=== PATIENT | male | born 1960 | race Caucasian/White ===

== ENCOUNTER → 2017-03-30 | Outpatient (CLI) | payer MEDICARE, OTHER ==
[2015-01-04 14:58] VITALS: BP 120/74
[~2017-03-30] MED LIST: ARIP10TA9 PO; CELE200C PO; FERR-26 PO; FLUT1DIS IH; HYDR-2762 PO; LISI10TA2 PO; OXYC-323 PO; Oxycodone Hcl/Acetaminophen PO; TAMS0.4C2 PO; TRAZ50TA15 PO; WARF5TAB7 PO; Warfarin Sodium MC
--- NOTE | 2017-03-30 14:46 | RAD ---
EXAM: Triple phase bone scintigraphy. HISTORY: Right knee pain and swelling after arthroplasty. Recent fall. COMPARISON: 01/01/2015 plain radiograph. FINDINGS: 26.1 mCi technetium 99m MDP was administered intravenously. Scintigraphic images of both knees were obtained in angiographic, immediate and delayed phases. Angiographic images demonstrate increased perfusion to the right knee comparison with the left. Immediate images demonstrate a similar pattern. Delayed images demonstrate bilateral photopenic defects consistent with arthroplasties. There is asymmetrically increased uptake about the arthroplasty along the patella and the superomedial aspect of the femoral component. There is no clearly abnormal uptake about the left arthroplasty. Uptake at the right greater than left ankle and hind feet is likely degenerative. IMPRESSION: 1. Increased 3 phase uptake about the right arthroplasty, particularly at the patella and along the superomedial aspect of the femoral component. Correlate with plain radiographs to exclude fracture in the setting of recent trauma. Also correlate clinically and with radiographs to exclude loosening or infection.
== END | disposition home or self-care (01) ==
LOC: NM 07:57
PROVIDERS: ATTEND Orthopaedic Surgery
DX: M25.561 Pain in right knee (principal); W19.XXXD Unspecified fall, subsequent encounter
CPT/HCPCS: 78315; 96374; A9503

== ENCOUNTER → 2018-10-19 | Outpatient (CLI) | payer MEDICARE, OTHER ==
[2018-05-18 11:00] VITALS: BP 140/74
[~2018-10-19] MED LIST changes: +ALBU2.5V8 NEB; +AMLO5TAB4 PO; +ARIP30TA4 PO; +ASEN10TA9 SL; +ATOR10TA60 PO; +CARV3.1210 PO; +CETI10TA16 PO; +DICL75TA PO; -FERR-26 PO; +FERR325T14 PO; +FURO-68 PO; -HYDR-2762 PO; +HYDR-2765 PO; +LEVO500T59 PO; +LISI-338 PO; +METO25TA4 PO; +MOXI3DRO OS; +MULT1TAB52 PO; +NEPA3DRO LEFTEYE; +Nicotine 21MG TD; +OMEP20TA63 PO; -OXYC-323 PO; +OXYC1TAB15 PO; +OXYC1TAB19 PO; +PRED5DRO16 EACHEYE; +TOPI25TA7 PO; +TRAZ-118 PO; -TRAZ50TA15 PO; +WARF-31 PO; -WARF5TAB7 PO
--- NOTE | 2018-10-19 09:43 | CARD ---
MR#: [id number] Date of Study: 10/19/2018 Ordering Physician: GIANFRANCO OSHEA, Referring Physician: GIANFRANCO OSHEA, Tech: Noreen Figueroa APPROVED REPORT EXAM: Two-dimensional and M-mode echocardiogram with Doppler and color Doppler. Other Information Quality : AverageHR: 79bpm INDICATION COPD Cardiomyopathy Congestive Heart Failure RISK FACTORS Hypertension Hyperlipidemia Smoking 2D DIMENSIONS RVDd3.9 (2.9-3.5cm)Left Atrium(2D)4.3 (1.6-4.0cm) IVSd1.2 (0.7-1.1cm)Aortic Root(2D)3.7 (2.0-3.7cm) LVDd6.7 (3.9-5.9cm)LVOT Diameter2.4 (1.8-2.4cm) PWd1.5 (0.7-1.1cm)LVDs5.9 (2.5-4.0cm) FS (%) 12.3 %SV60.8 ml LVEF(%)25.9 (>50%) Aortic Valve AoV Peak Warren.145.7cm/Marifer Peak GR.8.5mmHg LVOT Peak Warren.74.8cm/sLVOT VTI 15.63cm JARRETT (VMAX)1.75wc4MU P 1/2 [id number] Mitral Valve MV E Igfyejqs47.6cm/sMV DECEL [id number] MV A Qhhvkwuc51.4cm/sMV [id number] E/A Ratio0.7MVA (PHT)3.33cm2 TDI E/Lateral E'14.6E/Medial E'13.8 Pulmonary Valve PV Peak Xucrlzrl10.1cm/sPV Peak Grad.3mmHg Pulmonary Vein S1 Aedgeujb18.2cm/sD2 Vkggfccg75.9cm/s PVa [id number] LEFT VENTRICLE The Left Ventricle is moderately dilated. There is moderate concentric left ventricular hypertrophy. The left ventricular systolic function is moderately impaired. The Ejection Fraction is 30-35%. There is global hypokinesis of the left ventricle. Transmitral Doppler flow pattern is Grade I-abnormal re laxation pattern. RIGHT VENTRICLE The right ventricle is normal size. There is normal right ventricular wall thickness. The right ventr icular systolic function is normal. ATRIA The left atrium is mildly dilated. The right atrium size is normal. The interatrial septum is intact with no evidence for an atrial septal defect or patent foramen ovale as noted on 2-D or Doppler imagi ng. AORTIC VALVE The aortic valve is normal in structure and function. Doppler and Color Flow revealed mild aortic reg urgitation. There is no significant aortic valvular stenosis. MITRAL VALVE The mitral valve is normal in structure and function. There is no evidence of mitral valve prolapse. There is no mitral valve stenosis. Doppler and Color-flow revealed trace mitral regurgitation. TRICUSPID VALVE The tricuspid valve is normal in structure and function. Doppler and Color Flow revealed trace tricus pid regurgitation. There is no tricuspid valve stenosis. PULMONIC VALVE The pulmonic valve is not well visualized. Doppler and Color Flow revealed trace pulmonic valvular re gurgitation. GREAT VESSELS The aortic root is mildly enlarged. The IVC is normal in size and collapses >50% with inspiration. PERICARDIAL EFFUSION There is no evidence of significant pericardial effusion. Critical Notification Critical Value: No <Conclusion> The left ventricular systolic function is moderately impaired. The Ejection Fraction is 30-35%. Transmitral Doppler flow pattern is Grade I-abnormal relaxation pattern. Mild aortic regurgitation. Trace mitral regurgitation. Trace tricuspid regurgitation. There is no evidence of significant pericardial effusion. Signed by : Lamont Pearl, Electronically Approved : 10/19/2018 09:43:10
== END | disposition home or self-care (01) ==
LOC: ECHO 07:58
PROVIDERS: ATTEND Internal Medicine Cardiovascular Disease
DX: I35.1 Nonrheumatic aortic (valve) insufficiency (principal); I11.0 Hypertensive heart disease with heart failure; I50.9 Heart failure, unspecified; I42.9 Cardiomyopathy, unspecified; E78.5 Hyperlipidemia, unspecified; J44.9 Chronic obstructive pulmonary disease, unspecified
CPT/HCPCS: 93306

== ENCOUNTER 2018-11-03 15:31 | Emergency (ER) | payer MEDICARE ==
[~2018-11-03] VITALS: Ht 180.3 cm; Wt 117.9 kg
--- NOTE | 2018-11-03 16:44 | RAD ---
Chest, PA and Lateral: Technique: PA and lateral views of the chest were obtained. History: PICC line. Comparison: 05/13/2018. Findings/ impression: Mild cardiomegaly.. Right-sided PICC line is identified with the tip projecting in the region of the SVC.. The lungs are clear. The pleural margins are clear. Electronically signed by: Rafa Ruiz MD (11/03/2018 4:41 PM) [facility]
--- NOTE | 2018-11-03 16:55 | PHYS DOC ---
Past Medical History Past Medical History: CHF, COPD, High Cholesterol, Hypertension, Schizophrenia (MARYAN CARLTON APRN) Past Surgical History: Knee Replacement, Other Additional Past Surgical Histo: right knee revision (MARYAN CARLTON APRN) Alcohol Use: Occasionally Drug Use: None (MARYAN CARLTON APRN) Adult General Chief Complaint Chief Complaint: OTHER COMPLAINTS [facility] HPI Patient is a 58 year old male who presents to the ED today requesting x-ray for confirmation of the PICC line being in the right place. Patient states he was admitted at [facility] a week ago for right knee infection had knee revision, was started on Vancomycin. Home health nurse came today noted some swelling on the right upper extremity at the PICC line site and sent him to the ED to have an x-ray done to confirm PICC location. He is requesting we fax the x-ray to [facility]. He states his PICC line could have moved when he was asleep I asked patient and the if there is any concern for infection considering this some swelling and trace redness to the PICC line. Patient and state they were sent here for x-rays only. They states they are not here for labs. (MARYAN CARLTON APRN) Review of Systems Review of Systems Constitutional: Denies fever or chills [] Eyes: Denies change in visual acuity, redness, or eye pain [] HENT: Denies nasal congestion or sore throat [] Respiratory: Denies cough or shortness of breath [] Cardiovascular: No additional information not addressed in HPI [] GI: Denies abdominal pain, nausea, vomiting, bloody stools or diarrhea [] : Denies dysuria or hematuria [] Musculoskeletal: Denies back pain or joint pain [] Integument: Request chest x-ray for PICC confirmation Neurologic: Denies headache, focal weakness or sensory changes [] All other systems were reviewed and found to be within normal limits, except as documented in this note. (MARYAN CARLTON APRN) Allergies Allergies Allergies Coded Allergies Type Severity Reaction Last Updated Verified Penicillins Allergy Intermediate Rash 04/27/17 Yes aspirin Adverse Reaction Intermediate Rash 04/27/17 Yes (GIOVANNI NOLAN DO) Physical Exam Physical Exam Constitutional: Well developed, well nourished, no acute distress, non-toxic appearance. [] HENT: Normocephalic, atraumatic, bilateral external ears normal, oropharynx moist, no oral exudates, nose normal. [] Eyes: PERRLA, EOMI, conjunctiva normal, no discharge. [] Neck: Normal range of motion, no tenderness, supple, no stridor. [] Cardiovascular:Heart rate regular rhythm, no murmur [] Lungs & Thorax: Bilateral breath sounds clear to auscultation [] Abdomen: Bowel sounds normal, soft, no tenderness, no masses, no pulsatile masses. [] Skin: Right inner biceps with a PICC line with a clean dry dressing. There is slight swelling over the PICC line site with slight erythema around this area though patient states this has been there prior to today. There is no warmth, there is no drainage over the picc line site. Dressing is clean and intact. Back: No tenderness, no CVA tenderness. [] Extremities: No tenderness, no cyanosis, no clubbing, ROM intact, no edema. [] Neurologic: Alert and oriented X 3, normal motor function, normal sensory function, no focal deficits noted. [] Psychologic: Affect normal, judgement normal, mood normal. [] (MARYAN CARLTON APRN) Current Patient Data Vital Signs Vital Signs Date Time Temp Pulse Resp B/P (MAP) Pulse Ox O2 Delivery O2 Flow Rate FiO2 11/03/18 17:04 84 20 158/84 (108) 96 Room Air 11/03/18 15:40 98.4 98.4 (GIOVANNI NOLAN DO) EKG EKG [] (MARYAN CARLTON APRN) Radiology/Procedures Radiology/Procedures []PROCEDURE: CHEST PA & LATERAL Chest, PA and Lateral: Technique: PA and lateral views of the chest were obtained. History: PICC line. Comparison: 05/13/2018. Findings/ impression: Mild cardiomegaly.. Right-sided PICC line is identified with the tip projecting in the region of the SVC.. The lungs are clear. The pleural margins are clear. Electronically signed by: Rafa Solorio MD (11/03/2018 4:41 PM) [facility] DICTATED and SIGNED BY: RAFA SOLORIO MD DATE: 11/03/18 1641 (MARYAN CARLTON APRN) Course & Med Decision Making Course & Med Decision Making Pertinent Labs and Imaging studies reviewed. (See chart for details) This is a 58-year-old male patient who presents to the ED today requesting an x- ray to confirm his PICC line is in the right place. Patient has had the PICC line for one week, his currently being treated with vancomycin for right knee infection he states the home health nurse evaluated this area today and is concerned that the PICC line could've moved. Patient states he believed could've moved in his sleep. Chest xray noted for- Right-sided PICC line is identified with the tip projecting in the region of the SVC.. The lungs are clear. The pleural margins are clear. Xray clouded to [facility]. D/c to home. F/u with PCP in 1 week (MARYAN CARLTON APRN) Dragon Disclaimer Dragon Disclaimer This electronic medical record was generated, in whole or in part, using a voice recognition dictation system. (MARYAN CARLTON APRN) Departure Departure Impression: Primary Impression: PICC (peripherally inserted central catheter) in place Disposition: HOME, SELF-CARE Condition: STABLE Referrals: ROSAMARIA CALLE MD (PCP) followup in 1 week Patient Instructions: PICC Home Guide Additional Instructions: Your PICC line tip appears in the right place. We clouded the images to [facility]. Your doctor should have access to it. Follow up with your doctor as soon as you can Attending Signature Attending Signature I have reviewed the PA/TEMPERATURE CONTROL INSPECTOR's note and plan of care. I was available for consultation as needed during the patient's visit in the emergency department. I agree with the clinical impression, plan, and disposition. (GIOVANNI NOLAN DO) MARYAN CARLTON APRN Nov 03, 2018 16:55 GIOVANNI NOLAN DO Nov 07, 2018 14:50
[2018-11-03 17:04] VITALS: BP 158/84
== END 2018-11-03 17:03 | disposition home or self-care (01) ==
LOC: ER 15:31
DX: Z95.9 Presence of cardiac and vascular implant and graft, unspecified (principal); E78.00 Pure hypercholesterolemia, unspecified; J44.9 Chronic obstructive pulmonary disease, unspecified; F20.9 Schizophrenia, unspecified; I11.0 Hypertensive heart disease with heart failure; I50.9 Heart failure, unspecified; Z88.0 Allergy status to penicillin; Z88.6 Allergy status to analgesic agent
CPT/HCPCS: 71046; 99284

== ENCOUNTER → 2019-07-07 | Outpatient (CLI) | payer BC ==
[2019-07-07 11:36] LABS: BASO # 0.1 x10^3/uL (0.0-0.2); BASO % 1 % (0-3); EOS # 0.4 x10^3/uL (0.0-0.7); EOS % 4 % (0-3); HEMATOCRIT 43.5 % (39.0-53.0); HEMOGLOBIN 14.4 g/dL (13.0-17.5); LYMPH # 3.2 x10^3/uL (1.0-4.8); LYMPH % 30 % (24-48); MEAN CORPUSCULAR HEMOGLOBIN 27 pg (25-35); MEAN CORPUSCULAR HGB CONC 33 g/dL (31-37); MEAN CORPUSCULAR VOLUME 83 fL (79-100); MONO # 1.1 x10^3/uL (0.0-1.1); MONO % 11 % (0-9); NEUT # 5.9 x10^3/uL (1.8-7.7); NEUT % 55 % (31-73); PLATELET COUNT 284 x10^3/uL (140-400); RED BLOOD COUNT 5.26 x10^6/uL (4.30-5.70); RED CELL DISTRIBUTION WIDTH 15.4 % (11.5-14.5); WHITE BLOOD COUNT 10.7 x10^3/uL (4.0-11.0)
[2019-07-07 11:51] LABS: ALBUMIN 3.8 g/dL (3.4-5.0); CALCIUM 9.8 mg/dL (8.5-10.1); CREATININE 1.5 mg/dL (0.7-1.3); GFR 48.1; POTASSIUM 5.2 mmol/L (3.5-5.1); TOTAL BILIRUBIN 0.4 mg/dL (0.2-1.0); TOTAL PROTEIN 7.8 g/dL (6.4-8.2)
== END ==
LOC: LAB 10:47
PROVIDERS: ATTEND Internal Medicine Cardiovascular Disease
DX: I42.9 Cardiomyopathy, unspecified (principal)
CPT/HCPCS: 36415; 80053; 83880; 85025

== ENCOUNTER → 2020-06-24 | Outpatient (CLI) | payer MEDICARE ==
[~2020-06-24] MED LIST changes: +ALBU2.5V8 IH; +CETI10CA PO; +DOXE50CA PO; +FLUO20CA20 PO; +FLUT1BLS3 IH; -LISI-338 PO; +LISI-517 PO; +LISI10TA16 PO; -LISI10TA2 PO; +MIRA25TA PO; +MULT-445 PO; -MULT1TAB52 PO; +SACU1TAB PO; +TAMS0.4C97 PO
== END ==
LOC: LAB 12:56
PROVIDERS: ATTEND Internal Medicine Cardiovascular Disease
DX: Z01.812 Encounter for preprocedural laboratory examination (principal); Z20.822 Contact with and (suspected) exposure to COVID-19
CPT/HCPCS: U0003

== ENCOUNTER 2020-06-27 08:18 | Observation (INO) | payer MEDICARE, MEDICAID ==
[~2020-06-27] VITALS: Ht 180.3 cm; Wt 128.3 kg
[2020-06-27] VITALS (15 sets, daily range): BP systolic 103–195; BP diastolic 63–100
[~2020-06-27 08:18] MED LIST changes: -ALBU2.5V8 IH; -CETI10CA PO; -DOXE50CA PO; -FLUO20CA20 PO; -FLUT1BLS3 IH; -MIRA25TA PO; -SACU1TAB PO; -TAMS0.4C97 PO
[2020-06-27] MEDS ORDERED: SACU1TAB PO (08:49)
[2020-06-27] MEDS ORDERED: TAMS0.4C97 PO (08:49)
[2020-06-27] MEDS ORDERED: FLUO20CA20 PO (08:49)
[2020-06-27] MEDS ORDERED: MIRA25TA PO (08:49)
[2020-06-27] MEDS ORDERED: CETI10CA PO (08:49)
[2020-06-27] MEDS ORDERED: ALBU2.5V8 IH (08:49)
[2020-06-27] MEDS ORDERED: CARV3.1210 PO (08:49)
[2020-06-27] MEDS ORDERED: DOXE50CA PO (08:49)
[2020-06-27 09:01] LABS: HEMATOCRIT 49.3 % (39.0-53.0); HEMOGLOBIN 16.6 g/dL (13.0-17.5); RED BLOOD COUNT 5.91 x10^6/uL (4.30-5.70); RED CELL DISTRIBUTION WIDTH 15.6 % (11.5-14.5); WHITE BLOOD COUNT 7.7 x10^3/uL (4.0-11.0)
[2020-06-27 09:11] LABS: PROTHROMBIN TIME PATIENT 13.1 SEC (11.7-14.0)
--- NOTE | 2020-06-27 09:12 | NUR ---
Order received from Dr. Navarrete to admit patient; CVC status. Dx acute decompensated heart failure. IV placed, VS taken. Admission order placed. Labs, echo ordered per . Notified Noreen SAAB, Pattern Assembler, at 0910 of admission order.
[2020-06-27 09:16] LABS: ALBUMIN 3.6 g/dL (3.4-5.0); ALBUMIN/GLOBULIN RATIO 0.9 (1.0-1.7); CALCIUM 9.1 mg/dL (8.5-10.1); CREATININE 1.2 mg/dL (0.7-1.3); POTASSIUM 4.1 mmol/L (3.5-5.1); TOTAL BILIRUBIN 0.6 mg/dL (0.2-1.0); TOTAL PROTEIN 7.5 g/dL (6.4-8.2)
--- NOTE | 2020-06-27 12:10 | NUR ---
REPORT CALLED TO KATIANA FAGAN ON CVC, BY Lily HENDRIX RN . ALL QUESTIONS ANSWERED AND UPDATES GIVEN. PT SIGNED CONSENTS FOR CARDIAC CATH, HIV AND MODERATE SEDATION. PT TRANSPORTED VIA WHEELCHAIR TO ROOM 263.
[2020-06-27] MEDS ORDERED: LIDOCAINE 1% Multi-Dose 20 ML VIAL. ONE (13:57)
[2020-06-27] MEDS ORDERED: fentaNYL PF VIAL 100 MCG/2 ML VIAL ONE (14:11)
[2020-06-27] MEDS ORDERED: MIDAZOLAM HCL/PF 2 MG/2 ML VIAL. ONE (14:11)
[2020-06-27] MEDS ORDERED: MIDAZOLAM HCL/PF 2 MG/2 ML VIAL. IV ONE (14:15)
[2020-06-27] MEDS ORDERED: fentaNYL PF VIAL 100 MCG/2 ML VIAL IV ONE (14:15)
[2020-06-27] MEDS ORDERED: LIDOCAINE 1% Multi-Dose 20 ML VIAL. INJ ONE (14:15)
--- NOTE | 2020-06-27 14:20 | PDOC ---
MODERATE SEDATION ASSESSMENT RISKS/ALTERNATIVES Risks/Alternatives Risks and alternatives of this type of sedation and procedure discussed with: RISK/ALTERNATIVES: Patient H & P ON CHART H & P H & P on chart and reviewed for co-morbid conditions and appropriate labs. H&P ON CHART: Yes STATUS PREG STATUS ASSESSED: N/A MEDS/ALLERGIES REVIEWED Meds/Allergies Reviewed Medications and Allergies including time and route of recently administered narcotics and sedatives. MEDS/ALLERGIES REVIEWED: Yes ASA RATING ASA RATING: II AIRWAY ASSESSMENT Airway Assessment Airway patency, oral function limitations, presence of caps, crowns, dentures, partials, and ability to extend neck assessed. AIRWAY ASSESSMENT: Yes MALLAMPATI SCORE MALLAMPATI SCORE: II PRE-SEDATION ASSESSMENT PRE-SEDATION ASSESSMENT: Yes GIANFRANCO OSHEA MD Jun 27, 2020 14:20
--- NOTE | 2020-06-27 14:20 | PDOC1 ---
History and Physical Visit Information Date of Admission: Jun 27, 2020 at 09:05 History of Present Illness History of Present Illness Roscoe is a pleasant 59-year-old man who comes into the hospital today for evaluation of worsening exertional dyspnea. He was seen in the office approximately 2 weeks ago and had significant exertional dyspnea, NYHA class III symptoms and exertional chest pressure. He was on appropriate medical therapy including carvedilol, Entresto and was taking diuretics with Lasix. Despite outpatient treatment with medications he continued to have worsening symptoms. He was planned for an outpatient cardiac catheterization today but reported that he had severe exertional dyspnea and was unable to perform activities of daily living and this prompted admission to the hospital. A thorough discussion was held with the patient and his sister prior to admission. He unfortunately is unable to walk without significant limitations. He initially saw us 2 weeks ago for preoperative clearance for a planned knee surgery and this was delayed due to his significant comorbidities. He underwent an echocardiogram today with results as noted below. Cardiac Risk Factors Comments 1. Morbid obesity 2. Obstructive sleep apnea not yet on CPAP therapy 3. Tobacco abuse 4. Presumed COPD 5. Prior history of nonischemic cardiomyopathy with an ejection fraction of 25% Current Medications Current Medications Current Medications Heparin Sodium/ Sodium Chloride 500 ml @ As Directed STK-MED ONCE .ROUTE ; Start 06/27/20 at 13:57; Stop 06/27/20 at 13:57; Status DC Lidocaine HCl (Lidocaine 1% 20ml Vial) 20 ml STK-MED ONCE .ROUTE ; Start 06/27/20 at 13:57; Stop 06/27/20 at 13:57; Status DC Allergies Allergies Allergies Coded Allergies Type Severity Reaction Last Updated Verified Penicillins Allergy Intermediate Rash 04/27/17 Yes aspirin Adverse Reaction Intermediate Rash 04/27/17 Yes Social History Comments He continues to smoke approximately 1 pack/day. Denies any alcohol or illicit drug use. He has 2 sisters who help care for him very closely. Family History Comments Noncontributory ROS Review of System Negative for 10 out of 14 systems reviewed unless otherwise mentioned above in HPI Physical Exam Comments On examination he has moderate distress from his tachypnea. He is alert and oriented x3 Head and neck exam is unremarkable. He has a thick neck consistent with his sleep apnea symptoms Extraocular movements are intact Cardiac exam reveals normal S1 and S2 with an S3 present Lungs are notable for decreased breath sounds bilaterally with mild bibasilar rales He has an obese protuberant abdomen. No obvious organomegaly is present 2+ radial pulses He has chronic skin changes suggestive of venous insufficiency with diminished pedal pulses. No obvious acute limb ischemia is noted No focal neurologic deficits but he does have weakness with his right leg due to his arthritis Vitals VITALS Vital Signs Date Time Temp Pulse Resp B/P (MAP) Pulse Ox O2 Delivery O2 Flow Rate FiO2 06/27/20 11:30 90 14 119/84 (96) 95 Nasal Cannula 2.0 06/27/20 09:15 98.1 98.1 Labs Labs Laboratory Tests Test 06/27/20 08:40 White Blood Count 7.7 x10^3/uL (4.0-11.0) Red Blood Count 5.91 x10^6/uL (4.30-5.70) Hemoglobin 16.6 g/dL (13.0-17.5) Hematocrit 49.3 % (39.0-53.0) Mean Corpuscular Volume 83 fL (79-100) Mean Corpuscular Hemoglobin 28 pg (25-35) Mean Corpuscular Hemoglobin Concent 34 g/dL (31-37) Red Cell Distribution Width 15.6 % (11.5-14.5) Platelet Count 200 x10^3/uL (140-400) Prothrombin Time 13.1 SEC (11.7-14.0) Prothromb Time International Ratio 1.0 (0.8-1.1) Sodium Level 138 mmol/L (136-145) Potassium Level 4.1 mmol/L (3.5-5.1) Chloride Level 104 mmol/L (98-107) Carbon Dioxide Level 22 mmol/L (21-32) Anion Gap 12 (6-14) Blood Urea Nitrogen 25 mg/dL (8-26) Creatinine 1.2 mg/dL (0.7-1.3) Estimated GFR (Cockcroft-Gault) 62.0 BUN/Creatinine Ratio 21 (6-20) Glucose Level 131 mg/dL (70-99) Calcium Level 9.1 mg/dL (8.5-10.1) Total Bilirubin 0.6 mg/dL (0.2-1.0) Aspartate Amino Transf (AST/SGOT) 24 U/L (15-37) Alanine Aminotransferase (ALT/SGPT) 49 U/L (16-63) Alkaline Phosphatase 115 U/L (46-116) ZT-Wyx-X-Type Natriuretic Peptide 170 pg/mL (0-124) Total Protein 7.5 g/dL (6.4-8.2) Albumin 3.6 g/dL (3.4-5.0) Albumin/Globulin Ratio 0.9 (1.0-1.7) Laboratory Tests Test 06/27/20 08:40 White Blood Count 7.7 x10^3/uL (4.0-11.0) Red Blood Count 5.91 x10^6/uL (4.30-5.70) Hemoglobin 16.6 g/dL (13.0-17.5) Hematocrit 49.3 % (39.0-53.0) Mean Corpuscular Volume 83 fL (79-100) Mean Corpuscular Hemoglobin 28 pg (25-35) Mean Corpuscular Hemoglobin Concent 34 g/dL (31-37) Red Cell Distribution Width 15.6 % (11.5-14.5) Platelet Count 200 x10^3/uL (140-400) Prothrombin Time 13.1 SEC (11.7-14.0) Prothromb Time International Ratio 1.0 (0.8-1.1) Sodium Level 138 mmol/L (136-145) Potassium Level 4.1 mmol/L (3.5-5.1) Chloride Level 104 mmol/L (98-107) Carbon Dioxide Level 22 mmol/L (21-32) Anion Gap 12 (6-14) Blood Urea Nitrogen 25 mg/dL (8-26) Creatinine 1.2 mg/dL (0.7-1.3) Estimated GFR (Cockcroft-Gault) 62.0 BUN/Creatinine Ratio 21 (6-20) Glucose Level 131 mg/dL (70-99) Calcium Level 9.1 mg/dL (8.5-10.1) Total Bilirubin 0.6 mg/dL (0.2-1.0) Aspartate Amino Transf (AST/SGOT) 24 U/L (15-37) Alanine Aminotransferase (ALT/SGPT) 49 U/L (16-63) Alkaline Phosphatase 115 U/L (46-116) NV-Pnb-G-Type Natriuretic Peptide 170 pg/mL (0-124) Total Protein 7.5 g/dL (6.4-8.2) Albumin 3.6 g/dL (3.4-5.0) Albumin/Globulin Ratio 0.9 (1.0-1.7) ECG Comments Sinus rhythm VTE Prophylaxis Ordered VTE Prophylaxis Devices: No VTE Pharmacological Prophylaxi: No Assessment/Plan Assessment/Plan 1. Acute on chronic hypoxic respiratory failure, patient initially was hypoxic to the 80s on admission and required initiation of nasal cannula at 2 to 3 L 2. Mild acute on chronic systolic and diastolic heart failure 3. Morbid obesity with likely underlying COPD and obstructive sleep apnea Plan: 1. His laboratory studies are grossly unremarkable but he does have new oxygen requirements and I think would be imperative to rule out any worsening obstructive pulmonary issues. We will initiate oxygen therapy and have our pulmonary colleagues evaluate him. He does have moderate pulmonary hypertension on echocardiogram and we will proceed with a right heart catheterization to evaluate his filling pressures. Continue optimization. Justicifation of Admission Dx: Justifications for Admission: Justification of Admission Dx: Yes Respiratory Failure: Severe Resp Distress Acute COPD Exacerbation: Acute COPD Exacerbation GIANFRANOC OSHEA MD Jun 27, 2020 14:20
--- NOTE | 2020-06-27 17:45 | CARD ---
MR#: [id number] Date of Study: 06/27/2020 Ordering Physician: GIANFRANCO OSHEA, Referring Physician: GIANFRANCO OSHEA, Tech: Margie Arevalo APPROVED REPORT Technologist: Margie Arevalo Nurse: Valentine Silva RN Procedure(s) performed: fl time: 0.9 mins dose: 3 gycm2 moderate sedation: 25 mins RHC HISTORY The patient is a 59 year-old male with a history of : tobacco history() , hypertension, dyslipidemia. INDICATION The indication(s) include : dyspnea. PROCEDURE NARRATIVE Clinical information: 59-year-old male with history of cardiomyopathy, severe COPD, obstructive sleep apnea who presented t o the [facility] with worsening exertional dyspnea and NYHA class III symptoms. A right heart catheter ization was performed to elicit the etiology of his exertional dyspnea. After appropriate informed consent the patient was brought to the catheterization laboratory and the right neck was prepped and draped in usual sterile fashion. Under 2% lidocaine local anesthesia a 8 B[place]wanan sheath was inserted into the right internal jugular vein via ultrasound and fluoroscopic analilia nce. A 7.5 [place]an PA catheter was advanced to the right heart chambers and pressures and saturations were obtained. Next, cardiac output measurements were made by the Apolinar and thermal dilution methods . At case completion the PA catheter was removed and hemostasis was achieved with manual compression . No acute complications were noted. Findings: RA 8 mmHg RV 34/5/10 PA 34/19/24 Wedge 11 mmHg Wedge saturation 93%, PA saturation 71% Thermodilution cardiac output 6.8 L/min, Apolinar cardiac output 5.4 L/min Conclusion 1. Normal biventricular filling pressures 2. No evidence of pulmonary hypertension 3. Normal cardiac output Recommendations 1. Aggressive medical therapy for COPD and pulmonary disease. Patient had new oxygen requirements a t initial hospitalization and we will await pulmonary consultation for further optimization. 2. Patient previously seen at [facility], we will obtain outside hospital missy rds for review. Signed by : Gianfranco Oshea, Electronically Approved : 06/27/2020 17:44:56
--- NOTE | 2020-06-27 22:19 | NUR ---
Home C-Pap at bedside. Patient explains he does not want to wear it because "he doesn't really like it and it gets in the way". Applied O2 2L NC. Resting in bed with call light at hand.
--- NOTE | 2020-06-28 02:08 | NUR ---
Patient agreeable to try sleeping with new c-pap machine on.
[2020-06-28 03:35] VITALS: BP 158/80
[2020-06-28 07:00] VITALS: BP 126/96
[2020-06-28] MEDS ORDERED: ALBUTEROL SULFATE 2.5 MG/3 ML NEBU. NEB PRN (08:45)
[2020-06-28] MEDS ORDERED: CARVEDILOL 3.125 MG TABLET. PO SCH (09:00)
[2020-06-28] MEDS ORDERED: FLUoxetine HCL 20 MG CAPSULE PO SCH (09:00)
[2020-06-28] MEDS ORDERED: FUROSEMIDE 40 MG TABLET. PO SCH (09:00)
[2020-06-28] MEDS ORDERED: MULTIVITAMIN with MINERAL TABLET. PO SCH (09:00)
[2020-06-28] MEDS ORDERED: SACUBITRIL/VALSARTAN 24/26MG TABLET. PO SCH (09:00)
--- NOTE | 2020-06-28 10:28 | CONS ---
DATE OF CONSULTATION: PULMONARY CONSULTATION ATTENDING PHYSICIAN: Canelo Navarrete MD REASON FOR CONSULTATION: Dyspnea. HISTORY OF PRESENT ILLNESS: The patient is a 59-year-old morbidly obese male who weighs 128 kilos. The patient has been hospitalized for exertional dyspnea. He was seen by Cardiology. Apparently dyspnea has been going on for last 6 months. He has put on 50 pounds during this time. He has no chest pain. No lower extremity edema. The patient smoked for 30 years, close to 2 packs per day and down to 1 pack per day and has not quit. Previously his echocardiogram had shown an EF of 30-35%, but a recent echocardiogram shows normal ejection fraction, but some moderate hypokinesis and grade 1 diastolic dysfunction. The patient has severe sleep apnea, diagnosed recently and has been on CPAP, which he just got the machine yesterday. He also saw cost control analyst in [place]. According to him, he did a lung scan. He is not sure of the results and pulmonary function tests were done and again he does not know the results. He has no history of deep vein thrombosis or pulmonary embolism. He underwent cardiac catheterization done by Cardiology and I have reviewed the results. He has normal biventricular filling pressures. No evidence of pulmonary hypertension. Aggressive medical management was recommended. No significant coronary artery disease. PAST MEDICAL HISTORY: Significant for history of morbid obesity, history of severe obstructive sleep apnea, history of likely COPD, history of previous low ejection fraction now normal, history of grade 1 diastolic dysfunction, history of thyroid nodule reported to him by outside imaging studies. PAST SURGICAL HISTORY: No recent surgeries. ALLERGIES: PENICILLIN AND ASPIRIN. MEDICATIONS: Reviewed as listed in the MRAD. REVIEW OF SYSTEMS: Twelve-point system obtained. Pertinent positives discussed in my history of present illness, otherwise noncontributory. All systems that were negative were reviewed as well. FAMILY HISTORY: Noncontributory to lungs. SOCIAL HISTORY: Smoker for more than 30 years up to 2 packs per day, now down to 1 pack a day. PHYSICAL EXAMINATION: VITAL SIGNS: Reviewed, pulse ox 89% on room air and 92% on 3 liters. NECK: Supple. LUNGS: Clear. CARDIOVASCULAR: Regular rate. ABDOMEN: Soft, obese. EXTREMITIES: With no pitting edema. LABORATORY DATA: Reviewed. White cell count 7.7, hemoglobin 16.6 and platelets are 200. BUN and creatinine 25 and 1.2. IMPRESSION: 1. Chronic exertional dyspnea for last 6 months. This is multifactorial and related to combination of 50-pound weight gain during this time as well as underlying chronic obstructive pulmonary disease. He has history of cardiomyopathy previously with an EF of 30-35%, but his recent echo shows normal ejection fraction, he does have moderate hypokinesis and grade 1 diastolic dysfunction. No clinical suspicion for thromboembolic disease. He needs optimization of his pulmonary status and also noncontrast CT chest to rule out any interstitial lung disease versus interstitial residual edema. 2. Severe obstructive sleep apnea based on the patient's history. His AHI was 99 per hour at an outside facility sleep study. He has been just prescribed CPAP yesterday. 3. Morbid obesity with a 50-pound weight gain in last 6 months. 4. No prior history of DVT or pulmonary embolism. RECOMMENDATIONS: 1. I have discussed with the patient and his sister in detail. He needs optimization of his pulmonary status. I will add Trelegy Ellipta 1 puff daily. He will use p.r.n. albuterol as rescue inhaler. 2. He needs to significantly lose weight. 3. 6-minute walk test to assess the need for home oxygen. 4. Continue home CPAP. 5. PFTs as an outpatient. 6. Noncontrast CT chest to rule out any residual interstitial infiltrate or interstitial lung disease. The chest x-ray shows slightly prominent interstitial markings from today's film. 7. The patient to follow up with me in August. We will discuss with Dr. Navarrete. SANA MONZON MD DR: LESLI/estrada JOB#: [id number] / [id number]
--- NOTE | 2020-06-28 10:31 | CARD ---
MR#: [id number] Date of Study: 06/27/2020 Ordering Physician: GIANFRANCO OSHEA, Referring Physician: GIANFRANCO OSHEA, Tech: Jennifer Jean [facility] APPROVED REPORT EXAM: Two-dimensional and M-mode echocardiogram with Doppler and color Doppler. Other Information Quality : Fair INDICATION Dyspnea 2D DIMENSIONS RVDd3.6 (2.9-3.5cm)Left Atrium(2D)5.3 (1.6-4.0cm) IVSd1.4 (0.7-1.1cm)Aortic Root(2D)4.1 (2.0-3.7cm) LVDd6.0 (3.9-5.9cm)LVOT Diameter2.7 (1.8-2.4cm) PWd1.3 (0.7-1.1cm)LVDs5.2 (2.5-4.0cm) FS (%) 13.2 %SV50.3 ml Aortic Valve AoV Peak Warren.150.2cm/sAoV VTI24.6cm AO Peak GR.9.0mmHgLVOT VTI 13.77cm AO Mean GR.6mmHgAVA (VTI)3.10cm2 Mitral Valve MV E Dtgaqwdg74.4cm/sMV DECEL [id number] MV A Iutjuvur31.1cm/sE/A Ratio0.9 TDI Lateral E' P. V3.60cm/sMedial E' P. V2.51cm/s E/Lateral E'19.0E/Medial E'27.3 Tricuspid Valve TR P. Sddpscme650no/sRAP [id number] TR Peak Gr.87heFcVBZB50eqNx LEFT VENTRICLE The left ventricle is normal size. There is mild concentric left ventricular hypertrophy. The left ve ntricular systolic function is normal and the ejection fraction is within normal range. The Ejection Fraction is 50-55%. There is normal LV segmental wall motion. Transmitral Doppler flow pattern is Gra de I-abnormal relaxation pattern. RIGHT VENTRICLE The right ventricle is normal size. The right ventricular systolic function is normal. ATRIA The left atrium is mildly dilated. The right atrium size is normal. The interatrial septum is intact with no evidence for an atrial septal defect or patent foramen ovale as noted on 2-D or Doppler imagi ng. AORTIC VALVE The aortic valve is calcified but opens well. Doppler and Color Flow revealed no significant aortic r egurgitation. There is no significant aortic valvular stenosis. MITRAL VALVE The mitral valve is calcified but opens well. There is no evidence of mitral valve prolapse. There is no mitral valve stenosis. Doppler and Color-flow revealed trace mitral regurgitation. TRICUSPID VALVE The tricuspid valve is normal in structure and function. Doppler and Color Flow revealed trace tricus pid regurgitation. The PA pressure was estimated at 27 mmHg. There is no tricuspid valve stenosis. PULMONIC VALVE The pulmonic valve is not well visualized. Doppler and Color Flow revealed trace pulmonic valvular re gurgitation. There is no pulmonic valvular stenosis. GREAT VESSELS The aortic root is normal in size. The ascending aorta is moderately dilated at 4.0 cm. The IVC is no rmal in size and collapses >50% with inspiration. PERICARDIAL EFFUSION There is no evidence of significant pericardial effusion. Critical Notification Critical Value: No <Conclusion> The left ventricle is normal size. The left ventricular systolic function is normal and the ejection fraction is within normal range. The Ejection Fraction is 50-55%. There is mild concentric left ventricular hypertrophy. Doppler and Color Flow revealed no significant aortic regurgitation. There is no significant aortic valvular stenosis. Doppler and Color-flow revealed trace mitral regurgitation. Doppler and Color Flow revealed trace tricuspid regurgitation. The PA pressure was estimated at 27 mmHg. The ascending aorta is moderately dilated at 4.0 cm. Signed by : Epifanio Hackett MD Electronically Approved : 06/28/2020 10:30:34
--- NOTE | 2020-06-28 10:40 | RAD ---
EXAM: XR CHEST 1V INDICATION: Reason: hypoxia / Spl. Instructions: / History: . TECHNIQUE: Single view COMPARISON: 11/03/2018 chest x-ray FINDINGS: The heart size is borderline enlarged. The great vessels appear unremarkable. There is no hilar or mediastinal mass. The lungs are clear. There is no pleural effusion or pneumothorax. There are no significant osseous abnormalities. IMPRESSION: Borderline cardiomegaly. No acute superimposed cardiac pulmonary process. Electronically signed by: Galdino Mart MD (06/28/2020 10:38 AM) [id number]
[2020-06-28 11:00] VITALS: BP 172/64
--- NOTE | 2020-06-28 11:20 | PDOC ---
CARDIO Progress Notes Date and Time Date of Service 06/28/20 Time of Evaluation 1420 Subjective Subjective: No Chest Pain, No Palpitations, No Dizziness, Other (not more SOA) Vitals Vitals Vital Signs Date Time Temp Pulse Resp B/P (MAP) Pulse Ox O2 Delivery O2 Flow Rate FiO2 06/28/20 10:59 81 126/96 06/28/20 08:00 Room Air 3.0 06/28/20 07:00 98.4 18 89 98.4 Weight Weight [ ] Input and Output Intake and Output Intake and Output 06/28/20 07:00 Intake Total 800 ml Output Total 750 ml Balance 50 ml Intake Oral 800 ml Output Urine Total 750 ml Physical Exam HEENT: Neck Supple W Full Motion Chest: Symmetric LUNGS: Other (diminished bases) Heart: RRR Abdomen: Other (obese ) Extremities: Other (trace bilateral LE edema ) Neurology: alert, oriented, follow commands Assessment Assessment 1. Progressive dyspnea secondary to COPD and morbid obesity. RHC with normal filling pressures and cardiac output. No evidence of pulm HTN. 2. NAVEED; CPAP initiated 3. Tobacco abuse 4. H/o NICM with LV recovery. EF previously 25%, now 50-55% Recommendations Trelegy initiated CPAP at HS 6min walk Weight loss; behavioral health tech consult Follow up in our clinic with Dr. Navarrete as scheduled. Justicifation of Admission Dx: Justifications for Admission: Justification of Admission Dx: Yes Respiratory Failure: Severe Resp Distress Acute COPD Exacerbation: Acute COPD Exacerbation STEPHANIE LARRY APRN Jun 28, 2020 11:20
--- NOTE | 2020-06-28 11:29 | NUR ---
SS following for discharge planning. SS reviewed pt chart and discussed with pt RN. Pt is from home and is currently requesting oxygen via nasal canula. Pt had heart cath on 06/27/2020. Pulmonary consulted. Six minute walk ordered. SS will continue to follow for discharge planning.
[2020-06-28] MEDS ORDERED: IPRATRPIUM/ALBUTEROL 0.5/2.5MG 3 ML NEBU. NEB SCH (12:00)
--- NOTE | 2020-06-28 12:39 | RAD ---
Noncontrast CT scan of the chest compared to similar exam dated May 122018 for hypoxia. TECHNIQUE: Contiguous axial CT images are obtained through the chest without IV contrast. Sagittal an d coronal reformations are evaluated. FINDINGS: There are a few small subtle areas of peripheral pleural-based groundglass opacities involv ing the lingula in the dependent lung bases, with appearance most characteristic of subsegmental atel ectasis. No areas of focal consolidation are identified. There may be some very subtle peribronchial thickening involving the perihilar bronchi, which could reflect early bronchitis or reactive airway d isease. No pleural effusions. No pneumothorax. There are conspicuous but morphologically normal lymph nodes throughout the mediastinum, which appear less prominent on the prior CT scan. Benign 2 suspect ed. No suspicious mediastinal, hilar, or axillary lymphadenopathy is seen. Coronary artery calcificat ions are seen to some degree in multiple distributions. Central airways are patent. Visualized upper abdominal organs are grossly unremarkable, though evaluation is limited by lack of IV contrast. No si gnificant osseous abnormalities are seen. IMPRESSION: 1. There are subtle groundglass changes involving the lingula and dependent bases which are most levon acteristic of subsegmental atelectasis rather than pneumonic infiltrate, though early developing infe ction could have this appearance. There is also suggestion of subtle perihilar peribronchial thickeni ng which may relate to bronchitis or reactive airway disease. Para PQRS Compliance Statement: One or more of the following individualized dose reduction techniques were utilized for this examinat ion: 1. Automated exposure control 2. Adjustment of the mA and/or kV according to patient size 3. Use of iterative reconstruction technique Electronically signed by: Hussain Godinez MD (06/28/2020 12:37 PM) [place] [id number]
[2020-06-28] MEDS ORDERED: FLUT1BLS3 IH (14:10)
--- NOTE | 2020-06-28 14:24 | PDOC3 ---
Discharge Summary Visit Information Date of Admission: Jun 27, 2020 Date of Discharge: Jun 28, 2020 Admitting Diagnosis Comment: 1. Progressive dyspnea 2. NAVEED; CPAP initiated 3. Probable COPD 4. Tobacco abuse 5. H/o NICM with LV recovery. EF previously 25%, now 50-55% Final Diagnosis 1. Progressive dyspnea secondary to COPD and morbid obesity. RHC with normal filling pressures and cardiac output. No evidence of pulm HTN. 2. NAVEED; CPAP initiated 3. Tobacco abuse 4. H/o NICM with LV recovery. EF previously 25%, now 50-55% Brief Hospital Course Allergies Allergies Coded Allergies Type Severity Reaction Last Updated Verified Penicillins Allergy Intermediate Rash 04/27/17 Yes aspirin Adverse Reaction Intermediate Rash 04/27/17 Yes Vital Signs Vital Signs Date Time Temp Pulse Resp B/P (MAP) Pulse Ox O2 Delivery O2 Flow Rate FiO2 06/28/20 11:12 98 High Flow Nasal Cannula 4.0 06/28/20 11:00 98.0 87 20 172/64 (100) 98.0 Lab Results Laboratory Tests Test 06/27/20 08:40 White Blood Count 7.7 x10^3/uL (4.0-11.0) Red Blood Count 5.91 x10^6/uL (4.30-5.70) Hemoglobin 16.6 g/dL (13.0-17.5) Hematocrit 49.3 % (39.0-53.0) Mean Corpuscular Volume 83 fL (79-100) Mean Corpuscular Hemoglobin 28 pg (25-35) Mean Corpuscular Hemoglobin Concent 34 g/dL (31-37) Red Cell Distribution Width 15.6 % (11.5-14.5) Platelet Count 200 x10^3/uL (140-400) Prothrombin Time 13.1 SEC (11.7-14.0) Prothromb Time International Ratio 1.0 (0.8-1.1) Sodium Level 138 mmol/L (136-145) Potassium Level 4.1 mmol/L (3.5-5.1) Chloride Level 104 mmol/L (98-107) Carbon Dioxide Level 22 mmol/L (21-32) Anion Gap 12 (6-14) Blood Urea Nitrogen 25 mg/dL (8-26) Creatinine 1.2 mg/dL (0.7-1.3) Estimated GFR (Cockcroft-Gault) 62.0 BUN/Creatinine Ratio 21 (6-20) Glucose Level 131 mg/dL (70-99) Calcium Level 9.1 mg/dL (8.5-10.1) Total Bilirubin 0.6 mg/dL (0.2-1.0) Aspartate Amino Transf (AST/SGOT) 24 U/L (15-37) Alanine Aminotransferase (ALT/SGPT) 49 U/L (16-63) Alkaline Phosphatase 115 U/L (46-116) DZ-Lvc-I-Type Natriuretic Peptide 170 pg/mL (0-124) Total Protein 7.5 g/dL (6.4-8.2) Albumin 3.6 g/dL (3.4-5.0) Albumin/Globulin Ratio 0.9 (1.0-1.7) Brief Hospital Course Mr. Maldonado is a 59 old male who presented for cardiac catheterization secondary to progressive exertional dyspnea. He was seen in the office approxim ately 2 weeks ago and had significant exertional dyspnea, NYHA class III symptoms and exertional chest pressure. He underwent right heart catheterization for further evaluation which noted normal biventricular filling pressures, normal cardiac output, and no evidence of pulmonary hypertension. He was seen by stamp pad finisher and was started on Trelegy. Weight loss was also recommend along with smoking cessation. 6 minute walk was conducted; no need for home oxygen therapy. Silo Operator was consulted. He will follow up with pulmonology on an outpatient basis. Assessment Assessment A&O x3 Lungs clear, diminished bases Heart tones regular Abdomen obese Trace bilateral LE edema Discharge Information Condition at Discharge: Improved Disposition/Orders: D/C to Home Scheduled Asenapine Maleate (Saphris) 10 Mg Tab.subl, 10 MG SL HS, (Reported) Entered as Reported by: KHANH EHSS on 04/12/17 1016 Last Action: Converted on 06/28/20836 by PETER FLORES Atorvastatin Calcium (Atorvastatin Calcium) 10 Mg Tablet, 10 MG PO QHS for hlp MDD 1, #30 Prescribed by: JAKE DIAZ on 05/18/18 0839 Last Action: Continued on 06/28/20836 by PETER FLORES Carvedilol (Carvedilol ) 3.125 Mg Tablet, 3.125 MG PO DAILY for CARDIAC, (Reported) Entered as Reported by: LIBERTY FINLEY on 06/27/20848 Last Taken: Unknown Dose on 06/27/20 Last Action: Continued on 06/28/20836 by PETER FLORES Cetirizine Hcl (Zyrtec) 10 Mg Capsule, 10 MG PO DAILY for , (Reported) Entered as Reported by: LIBERTY FINLEY on 06/27/20848 Last Taken: Unknown Dose on 06/27/20 Last Action: New Order on 06/27/20848 by LIBERTY FINLEY Doxepin Hcl (Doxepin Hcl) 50 Mg Capsule, 25 MG PO HS for , (Reported) Entered as Reported by: LIBERTY FINLEY on 06/27/20848 Last Action: Converted on 06/28/20836 by PETER FLORES Fluoxetine Hcl (Fluoxetine Hcl) 20 Mg Capsule, 20 MG PO DAILY for , (Reported) Entered as Reported by: LIBERTY FINLEY on 06/27/20848 Last Taken: Unknown Dose on 06/27/20 Last Action: Continued on 06/28/20836 by PETER FLORES Furosemide (Lasix) 40 Mg Tablet, 1 TAB PO DAILY for chf, #30 Ref 5 Prescribed by: JAKE DIAZ on 05/16/18 1224 Last Action: Continued on 06/28/20836 by PETER FLORES Mirabegron (Myrbetriq) 25 Mg Tab.er.24h, 25 MG PO HS for , (Reported) Entered as Reported by: LIBERTY FINLEY on 06/27/20848 Last Action: Converted on 06/28/20836 by PETER FLORES Multivitamin (Multivitamins) 1 Each Tablet, 1 TAB PO DAILY, #30 Ref 2 (Reported) Entered as Reported by: KHANH HESS on 04/12/17 1016 Last Action: Converted on 06/28/20836 by PETER FLORES Sacubitril/Valsartan (Entresto 24 mg-26 mg Tablet) 1 Each Tablet, 1 EACH PO BID for , (Reported) Entered as Reported by: LIBERTY FINLEY on 06/27/20848 Last Taken: Unknown Dose on 06/27/20 Last Action: Continued on 06/28/20836 by PETER FLORES Tamsulosin Hcl (Flomax) 0.4 Mg Cap.er.24h, 0.4 MG PO HS for , (Reported) Entered as Reported by: LIBERTY FINLEY on 06/27/20848 Last Action: Continued on 06/28/20836 by PETER FLORES Scheduled PRN Albuterol Sulfate (Proair Hfa Inhaler) 8.5 Gm Hfa.aer.ad, 2 PUFF IH PRN Q4-6HRS PRN for wheezing for 21 Days, #1 Ref 0 (Reported) Entered as Reported by: LIBERTY FINLEY on 06/27/20848 Last Action: New Order on 06/27/20848 by LIBERTY FINLEY Justicifation of Admission Dx: Justifications for Admission: Justification of Admission Dx: Yes Respiratory Failure: Severe Resp Distress Acute COPD Exacerbation: Acute COPD Exacerbation STEPHANIE LARRY APRN Jun 28, 2020 14:24
--- NOTE | 2020-06-28 14:46 | DISCH ---
DISCHARGE INSTRUCTIONS Condition on Discharge Condition on Discharge: Stable Activity After Discharge Activity Instructions for Disc: Resume previous activity, Activity as tolerated Exercise Instruction after Dis: Exercise per therapy Driving Instructions after Dis: Do not drive today Weight Bearing Status after Di: Full weight bearing Diet after Discharge Diet after Discharge: Cardiac Diet Texture: Regular Liquid Texture: Thin Liquid Swallowing Supervision: None needed Checks after Discharge Checks after discharge: Check blood press - daily Contacting the DR. after DC Call your doctor for: Concerns you may have Treatment/Equipment after DC Adaptive Equipment Issued: None STEPHANIE LARRY APRN Jun 28, 2020 14:46
--- NOTE | 2020-06-28 15:31 | NUR ---
DISCHARGED PATIENT HOME. DISCHARGE INSTRUCTIONS GIVEN. PIV AND HEART MONITOR REMOVED. ESCORTED PATIENT OFF UNIT PER WHEELCHAIR INTO A PRIVATE VEHICLE.
[2020-06-28] MEDS ORDERED: BUDESONIDE 0.5 MG/2 ML NEBU. NEB SCH (20:00)
[2020-06-28] MEDS ORDERED: TAMSULOSIN 0.4 MG CAP.ER.24H. PO SCH (21:00)
[2020-06-28] MEDS ORDERED: NON FORMULARY ITEM (Asenapine Maleate (Saphris) 10 MG) SL SCH (21:00)
[2020-06-28] MEDS ORDERED: DOXEPIN HCL 25 MG CAPSULE. PO SCH (21:00)
[2020-06-28] MEDS ORDERED: ATORVASTATIN CALCIUM 10 MG TABLET. PO SCH (21:00)
[2020-06-28] MEDS ORDERED: NON FORMULARY ITEM (Mirabegron (Myrbetriq) 25 MG) PO SCH (21:00)
== END 2020-06-28 15:30 | disposition home or self-care (01) ==
LOC: CCL 08:18 → 2 SOUTH 09:05 → INTOOBSV 09:05
PROVIDERS: ADMIT Internal Medicine Cardiovascular Disease; ATTEND Internal Medicine Cardiovascular Disease
DX: J96.21 Acute and chronic respiratory failure with hypoxia (principal); I11.0 Hypertensive heart disease with heart failure; I50.43 Acute on chronic combined systolic (congestive) and diastolic (congestive) heart failure; J44.1 Chronic obstructive pulmonary disease with (acute) exacerbation; E66.01 Morbid (severe) obesity due to excess calories; G47.33 Obstructive sleep apnea (adult) (pediatric); I42.8 Other cardiomyopathies; E78.5 Hyperlipidemia, unspecified; F17.210 Nicotine dependence, cigarettes, uncomplicated; Z79.899 Other long term (current) drug therapy; Z51.81 Encounter for therapeutic drug level monitoring; Z68.39 Body mass index [BMI] 39.0-39.9, adult
CPT/HCPCS: 36415; 71045; 71250; 76937; 80053; 83880; 85027; 85610; 93306; 93451; 96374; 96375; 99152; 99153; C1773; C1892; G0378; G0379; J1644; J2250; J3010; J3490